=== PATIENT | female | born 1970 | race Caucasian/White ===

== ENCOUNTER 2016-10-01 20:15 | Emergency (ER) | payer MEDICARE, MEDICAID ==
[~2016-10-01] VITALS: Ht 152.4 cm; Wt 117.5 kg
[~2016-10-01 20:15] MED LIST: ASCO500T3 PO; ASPI325T4 PO; ATOR10TA PO; CHOL100016 PO; CHOL10003 PO; CLON0.5T3 PO; CLON1TAB PO; CYAN10005 PO; FERR-26 PO; FLUO20CA16 PO; FLUO60TA PO; GABA-585 PO; INSU100C4 SQ; INSU100V8 SQ; LORA-434 PO; OMEP40CA2 PO; TRAZ100T12 PO; TRAZ150T55 PO; ZOLP10TA PO; vitamin b 12
[2016-10-01] MEDS: NITROGLYCERIN SUBLINGUAL 0.4 MG BOTTLE OF 25. SL PRN ×2 (21:03→21:12)
[2016-10-01 21:12] LABS: BASO % 0 % (0-3); EOS % 2 % (0-3); HEMOGLOBIN 10.3 g/dL (12.0-15.5); LYMPH # 1.6 x10^3/uL (1.0-4.8); LYMPH % 24 % (24-48); MEAN CORPUSCULAR HEMOGLOBIN 26 pg (25-35); MEAN CORPUSCULAR HGB CONC 31 g/dL (31-37); MEAN CORPUSCULAR VOLUME 82 fL (79-100); MONO % 8 % (0-9); NEUT % 66 % (31-73); PLATELET COUNT 308 x10^3/uL (140-400); RED BLOOD COUNT 4.05 x10^6/uL (3.50-5.40); RED CELL DISTRIBUTION WIDTH 17.2 % (11.5-14.5); WHITE BLOOD COUNT 6.8 x10^3/uL (4.0-11.0)
[2016-10-01 21:18] LABS: BILIRUBIN,URINE NEGATIVE (NEG); GLUCOSE,URINE NEGATIVE (NEG); NITRITE,URINE NEGATIVE (NEG); PH,URINE 7.5; PROTEIN,URINE NEGATIVE (NEG-TRACE); UROBILINOGEN,URINE 0.2 mg/dL (0.2 mg/dL)
[2016-10-01 21:21] LABS: INR 0.9 (0.8-1.1); PROTHROMBIN TIME PATIENT 11.9 SEC (11.7-14.0)
[2016-10-01] MEDS: FENTANYL PF 100 MCG/2 ML VIAL. IV PRN ×3 (21:21→23:03)
[2016-10-01 21:25] LABS: BARBITURATES NEG (NEG); BENZODIAZEPINES NEG (NEG); CANNABINOIDS NEG (NEG); COCAINE NEG (NEG); METHADONE NEG (NEG); OPIATES NEG (NEG); PHENCYCLIDINE NEG (NEG)
[2016-10-01 21:27] LABS: ETHANOL, URINE NEG (NEG)
[2016-10-01 21:28] LABS: BACTERIA,URINE FEW /HPF (0-FEW); RBC,URINE 0 /HPF (0-2); SQUAMOUS EPITHELIAL CELL,UR MOD /LPF
[2016-10-01] MEDS ORDERED: ONDANSETRON PF 4 MG/2 ML VIAL. IV ONE (21:45)
[2016-10-01 21:47] LABS: NEG OBC SER NEG; POS OBC SER POS
[2016-10-01 22:23] LABS: CALCIUM 9.4 mg/dL (8.5-10.1); CREATININE 0.8 mg/dL (0.6-1.0); GFR 77.9; POTASSIUM 4.3 mmol/L (3.5-5.1)
[2016-10-01] MEDS ORDERED: IOHEXOL 300 MG/ML 75 ML VIAL IV ONE (23:15)
[2016-10-01] MEDS ORDERED: CONTRAST GIVEN MC PRN (23:15)
[2016-10-01 23:29] VITALS: BP 128/61
--- NOTE | 2016-10-01 23:38 | RAD ---
PQRS STATEMENT One or more of the following individualized dose reduction techniques were utilized for this study: 1.Automated exposure control 2.Adjustment of the mA and/or kV according to patient size 3.Use of iterative reconstruction technique CT angio chest. Indication: CP/SOB HX PE, ESOPHAGEAL STRICT, DVTReason: CP/SOB, hx of PE / Spl. Instructions: / History: TECHNIQUE Multiple contiguous axial images were obtained through the chest after intravenous administration of iodinated contrast. MIP reformations were created. FINDINGS There is no filling defect within the pulmonary arteries to suggest presence of a pulmonary embolism. The heart size is normal. There is no pericardial effusion. The thoracic aorta is normal in caliber with no evidence for dissection. The lungs are clear. No suspicious pulmonary nodules are identified. There is no pleural effusion or infiltrate. There is no thoracic adenopathy. Limited subdiaphragmatic evaluation is unremarkable. No destructive osseous lesions are identified. IMPRESSION Negative for pulmonary embolism. Electronically signed by: Yordan Wilde (Oct 01, 2016 23:37:25)
--- NOTE | 2016-10-02 02:46 | ED.ADGEN ---
Past Medical History Past Medical History: Anxiety, Bipolar, Diabetes-Type II, GERD, High Cholesterol, Hypertension, Other Additional Past Medical Histor: PE Past Surgical History: , Hysterectomy, Other Additional Past Surgical Histo: colonoscopy, LEFT CARPAL TUNNEL Alcohol Use: None Drug Use: None Adult General Chief Complaint Chief Complaint: CHEST PAIN HPI HPI Patient is a 46 year old woman, history of type type 2 diabetes mellitus, hypertension, obesity, hyperlipidemia, bipolar disorder, remote history of PE on anticoagulation, who presents to the emergency department with a complaint of left-sided chest pain radiating to her left back and occasionally left arm. Patient states the symptoms began at 7:30 in the evening, has been constant since that time. She was evaluated in the emergency department and admitted to the hospital for additional evaluation on 11 September for similar complaints, she states that "this feels the same". States that she does have some shortness of breath with pain in that worsens with inspiration, remote history of PE as stated, does not take any regulation, and states that "they never told me why it happened". This occurred years ago. No new injuries, patient with occasional coughing, and is nonproductive, no fevers, no chills, no GI or complaints. Has not taken any medications for this pain prior to coming to the ED. Review of Systems Review of Systems Constitutional: Denies fever or chills. [] Eyes: Denies change in visual acuity. [] HENT: Denies nasal congestion or sore throat. [] Respiratory: Denies cough or shortness of breath. [] Cardiovascular: Left anterior chest wall pain, sharp in nature, worse with deep inspiration, no edema. Pain occasionally spreads in the left shoulder down to the elbow. GI: Denies abdominal pain, nausea, vomiting, bloody stools or diarrhea. [] : Denies dysuria. [] Musculoskeletal: Denies back pain or joint pain. [] Integument: Denies rash. [] Neurologic: Denies headache, focal weakness or sensory changes. [] Endocrine: Denies polyuria or polydipsia. [] Lymphatic: Denies swollen glands. [] Psychiatric: Denies depression or anxiety. [] Current Medications Current Medications Current Medications Medications (Trade) Dose Ordered Sig/Amalia Start Time Stop Time Status Last Admin Dose Admin Fentanyl Citrate (Fentanyl 2ml Vial) 25 mcg PRN Q15MIN PRN 10/01/16 20:45 10/02/16 20:44 10/01/16 23:03 25 MCG Info (Do NOT chart on this entry -- for MONITORING) 1 each PRN DAILY PRN 10/01/16 23:15 10/03/16 23:14 Iohexol (Omnipaque 300 Mg/ml) 75 ml 1X ONCE 10/01/16 23:15 10/01/16 23:16 DC 10/01/16 23:23 75 ML Nitroglycerin (Nitrostat) 0.4 mg PRN Q5MIN PRN 10/01/16 20:45 10/02/16 20:44 10/01/16 21:12 0.4 MG Ondansetron HCl (Zofran) 4 mg 1X ONCE 10/01/16 21:45 10/01/16 21:46 DC 10/01/16 21:44 4 MG Allergies Allergies Allergies Coded Allergies Type Severity Reaction Last Updated Verified ketorolac Allergy Intermediate 09/11/16 Yes sulfamethoxazole Allergy Intermediate 04/29/16 Yes tramadol Allergy Intermediate 09/11/16 Yes trimethoprim Allergy Intermediate 04/29/16 Yes Physical Exam Physical Exam Constitutional: Well developed, well nourished, no acute distress, non-toxic appearance. [] HENT: Normocephalic, atraumatic, bilateral external ears normal, oropharynx moist, no oral exudates, nose normal. [] Eyes: PERRLA, EOMI, conjunctiva normal, no discharge. [] Neck: Normal range of motion, no tenderness, supple, no stridor. [] Cardiovascular:Heart rate regular rhythm, no murmur , S1, S2, rubs or gallops. [ ] Lungs & Thorax: Bilateral breath sounds clear to auscultation, no wheezing, rhonchi, rales. Patient with reproducible anterior left chest wall tenderness, no crepitus, consistent with patient's pain. [] Abdomen: Bowel sounds normal, soft, no tenderness, no masses, no pulsatile masses. [] Skin: Warm, dry, no erythema, no rash. [] Back: No tenderness, no CVA tenderness. [] Extremities: No tenderness, no cyanosis, no clubbing, ROM intact, no edema. Negative Homans sign. [] Neurologic: Alert and oriented X 3, normal motor function, normal sensory function, no focal deficits noted. [] Psychologic: Affect normal, judgement normal, mood normal. [] Current Patient Data Vital Signs Vital Signs Date Time Temp Pulse Resp B/P Pulse Ox O2 Delivery O2 Flow Rate FiO2 10/01/16 23:29 90 18 128/61 96 Room Air 10/01/16 20:30 98.1 98.1 Lab Values Laboratory Tests Test 10/01/16 20:36 10/01/16 20:48 10/01/16 20:58 10/01/16 21:02 QO-Okf-F-Type Natriuretic Peptide 36pg/mL (0-124) White Blood Count 6.8x10^3/uL (4.0-11.0) Red Blood Count 4.05x10^6/uL (3.50-5.40) Hemoglobin 10.3g/dL (12.0-15.5) L Hematocrit 33.0% (36.0-47.0) L Mean Corpuscular Volume 82fL (79-100) Mean Corpuscular Hemoglobin 26pg (25-35) Mean Corpuscular Hemoglobin Concent 31g/dL (31-37) Red Cell Distribution Width 17.2% (11.5-14.5) H Platelet Count 308x10^3/uL (140-400) Neutrophils (%) (Auto) 66% (31-73) Lymphocytes (%) (Auto) 24% (24-48) Monocytes (%) (Auto) 8% (0-9) Eosinophils (%) (Auto) 2% (0-3) Basophils (%) (Auto) 0% (0-3) Neutrophils # (Auto) 4.5x10^3uL (1.8-7.7) Lymphocytes # (Auto) 1.6x10^3/uL (1.0-4.8) Monocytes # (Auto) 0.6x10^3/uL (0.0-1.1) Eosinophils # (Auto) 0.1x10^3/uL (0.0-0.7) Basophils # (Auto) 0.0x10^3/uL (0.0-0.2) Prothrombin Time 11.9SEC (11.7-14.0) Prothrombin Time INR 0.9 (0.8-1.1) PTT 31SEC (24-38) Sodium Level 142mmol/L (136-145) Potassium Level 4.3mmol/L (3.5-5.1) Chloride Level 105mmol/L (98-107) Carbon Dioxide Level 29mmol/L (21-32) Anion Gap 8 (6-14) Blood Urea Nitrogen 13mg/dL (7-20) Creatinine 0.8mg/dL (0.6-1.0) Estimated GFR (Cockcroft-Gault) 77.9 Glucose Level 105mg/dL (70-99) H Calcium Level 9.4mg/dL (8.5-10.1) Troponin I Quantitative < 0.017ng/mL (0.000-0.055) Lipase 187U/L (73-393) Serum Test, Qualitative Negative (NEG) Urine Collection Type Unknown Urine Color Yellow Urine Clarity Clear Urine pH 7.5 Urine Specific [place] 1.015 Urine Protein Negativemg/dL (NEG-TRACE) Urine Glucose (UA) Negativemg/dL (NEG) Urine Ketones (Stick) Negativemg/dL (NEG) Urine Blood Negative (NEG) Urine Nitrite Negative (NEG) Urine Bilirubin Negative (NEG) Urine Urobilinogen Dipstick 0.2mg/dL (0.2 mg/dL) Urine Leukocyte Esterase Small (NEG) Urine RBC 0/HPF (0-2) Urine WBC 1-4/HPF (0-4) Urine Squamous Epithelial Cells Mod/LPF Urine Bacteria Few/HPF (0-FEW) Urine Mucus Marked/LPF Urine Opiates Screen Neg (NEG) Urine Methadone Screen Neg (NEG) Urine Barbiturates Neg (NEG) Urine Phencyclidine Screen Neg (NEG) Urine Amphetamine/Methamphetamine Neg (NEG) Urine Benzodiazepines Screen Neg (NEG) Urine Cocaine Screen Neg (NEG) Urine Cannabinoids Screen Neg (NEG) Urine Ethyl Alcohol Neg (NEG) POC Urine HCG, Qualitative hcg negative (Negative) Laboratory Tests 10/01/16 20:48 Laboratory Tests 10/01/16 20:48 EKG EKG EC: Sinus rhythm, heart rate 83 bpm, upright axis, QTC of 449, PA 158, QRS of 79, incomplete right bundle-branch block noted, abnormal ECG, does not meet STEMI criteria. As interpreted by me. [] Radiology/Procedures Radiology/Procedures Chest x-ray: Normal cardiopulmonary silhouette, no infiltrates, no effusions, no soft tissue or bony abnormalities identified. No pneumothorax. As interpreted by me. [] Impressions: [facility] [address] [place] [address] IMAGING REPORT Signed PATIENT: MARK PRIDE ACCOUNT: [id number] : 1970 LOCATION: ER AGE: 46 SEX: F EXAM STATUS: REG ER ORD. PHYSICIAN: RUBEN HUMPHREY DO REASON: CP/SOB, hx of PE PROCEDURE: CTA CHEST PQRS STATEMENT One or more of the following individualized dose reduction techniques were utilized for this study: 1.Automated exposure control 2.Adjustment of the mA and/or kV according to patient size 3.Use of iterative reconstruction technique CT angio chest. Indication: CP/SOB HX PE, ESOPHAGEAL STRICT, DVTReason: CP/SOB, hx of PE / Spl. Instructions: / History: TECHNIQUE Multiple contiguous axial images were obtained through the chest after intravenous administration of iodinated contrast. MIP reformations were created. FINDINGS There is no filling defect within the pulmonary arteries to suggest presence of a pulmonary embolism. The heart size is normal. There is no pericardial effusion. The thoracic aorta is normal in caliber with no evidence for dissection. The lungs are clear. No suspicious pulmonary nodules are identified. There is no pleural effusion or infiltrate. There is no thoracic adenopathy. Limited subdiaphragmatic evaluation is unremarkable. No destructive osseous lesions are identified. IMPRESSION Negative for pulmonary embolism. Electronically signed by: Yordan Kate (Oct 01, 2016 23:37:25) DICTATED and SIGNED BY: YORDAN KATE MD DATE: 10/01/16 0902 CC: RUBEN HUMPHREY DO; UNKNOWN PCP NAME ~ Course & Med Decision Making Course & Med Decision Making Pertinent Labs and Imaging studies reviewed. (See chart for details) Patient with history of chest pain which was recently evaluated, and return to likely be GI in nature. However, as patient does have history of remote PE, which she states was unprovoked per her recollection, and she is not on any anticoagulation, with report of respirophasic chest pain, mild shortness of breath, and mild tachycardia, CT of the chest obtained after discussion with patient bedside. She was treated with nitroglycerin, fentanyl initially in the ED for chest pain. Patient's laboratory studies at this point were unremarkable , ECG with acute concerning findings, chest x-ray unremarkable, CT was obtained , and did not reveal any evidence of acute normalities. However when I went to the room to discuss these negative findings with the patient, we found that she had pulled out her IV, and had eloped from the emergency department. Dragon Disclaimer Dragon Disclaimer This electronic medical record was generated, in whole or in part, using a voice recognition dictation system. Departure Impression: Primary Impression: Chest pain Disposition: 07 AGAINST MEDICAL ADVICE Condition: STABLE (ERASED) Problem Qualifiers Primary Impression: Chest pain Chest pain type: chest pain on breathing Qualified Code: R07.1 - Chest pain on breathing RUBEN HUMPHREY DO Oct 02, 2016 02:47
--- NOTE | 2016-10-02 06:24 | EKG ---
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
--- NOTE | 2016-10-02 07:38 | RAD ---
Portable AP upright view CXR: Clinical indications: Left-sided chest pain radiating to the left arm today.. Findings: No acute lung infiltrate or pleural effusion or pulmonary edema or lung mass or pneumothorax is seen. The heart size, pulmonary vasculature, mediastinum and both lacey are unremarkable. Scoliosis is seen. Impression: No acute radiographic abnormality is seen.
== END 2016-10-01 23:50 | disposition left against medical advice (07) ==
LOC: ER 20:15
DX: R07.1 Chest pain on breathing (principal); R06.02 Shortness of breath; R00.0 Tachycardia, unspecified; E11.9 Type 2 diabetes mellitus without complications; F31.9 Bipolar disorder, unspecified; F41.9 Anxiety disorder, unspecified; E78.00 Pure hypercholesterolemia, unspecified; I10 Essential (primary) hypertension; E66.9 Obesity, unspecified; E78.5 Hyperlipidemia, unspecified; Z68.43 Body mass index [BMI] 50.0-59.9, adult; Z88.8 Allergy status to other drugs, medicaments and biological substances; Z88.1 Allergy status to other antibiotic agents; Z88.2 Allergy status to sulfonamides; Z88.5 Allergy status to narcotic agent; Z86.711 Personal history of pulmonary embolism; Z79.01 Long term (current) use of anticoagulants
CPT/HCPCS: 36415; 71010; 71275; 80048; 81001; 81025; 83690; 83880; 84484; 84703; 85027; 85610; 85730; 87086; 93005; 96374; 96375; 96376; 99285; G0481; J2405; J3010; Q9967

== ENCOUNTER 2016-10-27 21:45 | Emergency (ER) | payer MEDICARE, MEDICAID ==
[~2016-10-27] VITALS: Ht 152.4 cm; Wt 117.9 kg
[2016-10-27 22:18] VITALS: BP 129/57
[2016-10-27] MEDS ORDERED: IV NORMAL SALINE 1000ML BAG 1,000 ML IV ONE (23:00)
[2016-10-27] MEDS ORDERED: DIPHENHYDRAMINE 50 MG/ML VIAL IVP ONE (23:00)
[2016-10-27] MEDS ORDERED: METOCLOPRAMIDE HCL 10 MG/2 ML VIAL. IV ONE (23:00)
--- NOTE | 2016-10-27 23:40 | PHYS DOC ---
Past Medical History Past Medical History: Anxiety, Bipolar, Diabetes-Type II, GERD, High Cholesterol, Hypertension, Migraines, Other Additional Past Medical Histor: PE Past Surgical History: , Hysterectomy, Tubal ligation, Other Additional Past Surgical Histo: colonoscopy, LEFT CARPAL TUNNEL Alcohol Use: None Drug Use: None Adult General Chief Complaint Chief Complaint: HEADACHE HPI HPI 46-year-old female with a history of migraines presents to the emergency department today with a headache consistent with her previous migraines. She reports her headache is similar to previous migraines. Her headache is sharp radiating to the back starting in the frontal region. She denies numbness weakness or tingling. She has had nausea with vomiting. She describes the pain is sharp moderate and without alleviating factors. Review of systems is negative for chest pain shortness of breath abdominal pain. Positive for nausea vomiting. All other review of systems is negative unless otherwise noted in history of present illness. Review of Systems Review of Systems SEE ABOVE. Current Medications Current Medications Current Medications Medications (Trade) Dose Ordered Sig/Amalia Start Time Stop Time Status Last Admin Dose Admin Diphenhydramine HCl 50 mg 50 mg 1X ONCE 10/27/16 23:00 10/27/16 23:01 DC 10/27/16 22:55 50 MG Metoclopramide HCl (Reglan) 20 mg 1X ONCE 10/27/16 23:00 10/27/16 23:01 DC 10/27/16 22:55 20 MG Sodium Chloride (Iv Sodium Chloride 0.9% 1000ml Bag) 1,000 ml @ 1,000 mls/hr 1X ONCE 10/27/16 23:00 10/27/16 23:59 10/27/16 22:51 1,000 MLS/HR Allergies Allergies Allergies Coded Allergies Type Severity Reaction Last Updated Verified ketorolac Allergy Intermediate 09/11/16 Yes sulfamethoxazole Allergy Intermediate 04/29/16 Yes tramadol Allergy Intermediate 09/11/16 Yes trimethoprim Allergy Intermediate 04/29/16 Yes Physical Exam Physical Exam Constitutional: Well developed, well nourished, no acute distress, non-toxic appearance. HENT: Normocephalic, atraumatic, bilateral external ears normal, oropharynx moist, no oral exudates, nose normal. [] Eyes: PERRLA, EOMI, conjunctiva normal, no discharge. [] Neck: Normal range of motion, no tenderness, supple, no stridor. Cardiovascular:Heart rate regular rhythm, no murmur [] Lungs & Thorax: Bilateral breath sounds clear to auscultation Abdomen: Bowel sounds normal, soft, no tenderness, no masses, no pulsatile masses. [] Skin: Warm, dry, no erythema, no rash. Back: No tenderness, no CVA tenderness. [] Extremities: No tenderness, no cyanosis, no clubbing, ROM intact, no edema. [] Neurologic: Mental status: Awake oriented and alert x3 Cranial nerves: Extraocular movements intact, eyebrows abhay bilaterally smile symmetric, uvula elevation, shoulder shrug intact, tongue protrusion normal Sensation: equal and normal in all extremities Strength: 5/5 in upper and lower extremities bilaterally Psychologic: Affect normal, judgement normal, mood normal. [] Current Patient Data Vital Signs Vital Signs Date Time Temp Pulse Resp B/P Pulse Ox O2 Delivery O2 Flow Rate FiO2 10/27/16 22:18 98.2 77 18 129/57 96 Room Air 98.2 EKG EKG [] Radiology/Procedures Radiology/Procedures [] Course & Med Decision Making Course & Med Decision Making Pertinent Labs and Imaging studies reviewed. (See chart for details) [] 46-year-old female presenting to the emergency department today with a headache consistent with previous migraines. Vital signs afebrile. Otherwise unremarkable. Neuro exam unremarkable. IV fluids, Reglan and Benadryl given. On reevaluation the patient's symptoms considerably improved. She was subsequently discharged home to follow up with her primary care physician over the next 2-3 days for chronic management of her migraines. Dragon Disclaimer Dragon Disclaimer This electronic medical record was generated, in whole or in part, using a voice recognition dictation system. Departure Departure Impression: Primary Impression: Migraine Disposition: 01 HOME, SELF-CARE Condition: STABLE Referrals: UNKNOWN PCP NAME (PCP) SWATI LUCIANO MD Patient Instructions: Migraine Headache Additional Instructions: Thank you for allowing us to participate in your care today. Followup with your primary care physician in 3 days if your symptoms do not improve. If you do not have a primary care provider you can ask for a list of our primary care providers. Return to the emergency department you have any new or concerning findings. This should be evaluated by the primary care physician and any necessary consulting services for continued management within a few days after discharge. Return to emergency room if you have any new or concerning symptoms including but not limited to fever, chills, nausea, vomiting, intractable pain, any new rashes, chest pain, shortness of air, uncontrolled bleeding, difficulty breathing, and/or vision loss. SYBIL SHIPMAN MD Oct 27, 2016 23:40
== END 2016-10-27 23:54 | disposition home or self-care (01) ==
LOC: ER 21:45
DX: G43.909 Migraine, unspecified, not intractable, without status migrainosus (principal); F41.9 Anxiety disorder, unspecified; F31.9 Bipolar disorder, unspecified; E11.9 Type 2 diabetes mellitus without complications; K21.9 Gastro-esophageal reflux disease without esophagitis; E78.00 Pure hypercholesterolemia, unspecified; I10 Essential (primary) hypertension; Z86.711 Personal history of pulmonary embolism; Z88.8 Allergy status to other drugs, medicaments and biological substances; Z88.2 Allergy status to sulfonamides; Z88.5 Allergy status to narcotic agent; Z88.1 Allergy status to other antibiotic agents
CPT/HCPCS: 96361; 96374; 96375; 99284; J1200; J2765; J7030

== ENCOUNTER 2016-12-13 22:41 | Emergency (ER) | payer MEDICARE, MEDICAID ==
[~2016-12-13] VITALS: Ht 152.4 cm; Wt 117.9 kg
[2016-12-13 23:00] VITALS: BP 135/75
[2016-12-13] MEDS ORDERED: LIDO:MAALOX:DONNATAL 1:1:1 15 ML SINGLE DOSE SWSW ONE (23:30)
[2016-12-13] MEDS ORDERED: ONDANSETRON PF 4 MG/2 ML VIAL. IV ONE (23:30)
[2016-12-13] MEDS ORDERED: FAMOTIDINE 20 MG/2 ML VIAL IVP ONE (23:30)
--- NOTE | 2016-12-13 23:34 | PHYS DOC ---
Past Medical History Past Medical History: Anxiety, Bipolar, Depression, Diabetes-Type II, GERD, High Cholesterol, Hypertension, Migraines, Other Additional Past Medical Histor: PE Past Surgical History: , Hysterectomy, Tubal ligation, Other Additional Past Surgical Histo: colonoscopy, LEFT CARPAL TUNNEL Alcohol Use: None Drug Use: None Adult General Chief Complaint Chief Complaint: CHEST PAIN HPI HPI Patient is a 46 year old female who presents with left lower chest pain radiating to left shoulder associated with nausea and vomiting over the past 2 weeks, intermittent, constant all day today. Symptoms have been gradually worsening throughout today. Symptoms much worse after laying down for bed. She has nonbloody nonbilious emesis intermittently. She denies bloody or dark stools , diarrhea, fever or chills, dysuria, back pain, dyspnea, palpitations, diaphoresis. States symptoms are similar to prior evaluations. States she is follows with her primary care doctor currently and plans to see a golf ball cover treater. Review of Systems Review of Systems Constitutional: Denies fever or chills [] Eyes: Denies change in visual acuity, redness, or eye pain [] HENT: Denies nasal congestion or sore throat [] Respiratory: Denies cough or shortness of breath [] Cardiovascular: No additional information not addressed in HPI [] GI: Denies abdominal pain, bloody stools or diarrhea [] : Denies dysuria or hematuria [] Musculoskeletal: Denies back pain or joint pain [] Integument: Denies rash or skin lesions [] Neurologic: Denies headache, focal weakness or sensory changes [] Endocrine: Denies polyuria or polydipsia [] Current Medications Current Medications Current Medications Medications (Trade) Dose Ordered Sig/Amalia Start Time Stop Time Status Last Admin Dose Admin Famotidine (Pepcid) 20 mg 1X ONCE 12/13/16 23:30 12/13/16 23:31 DC 12/13/16 23:30 20 MG Fentanyl Citrate (Fentanyl 2ml Vial) 100 mcg STK-MED ONCE 12/14/16 00:26 12/14/16 00:27 DC Ketorolac Tromethamine (Toradol) 15 mg STK-MED ONCE 12/14/16 00:17 12/14/16 00:25 DC Multi-Ingredient Mouthwash/Gargle (Gi Cocktail Single Dose) 15 ml 1X ONCE 12/13/16 23:30 12/13/16 23:31 DC 12/13/16 23:30 15 ML Ondansetron HCl (Zofran) 4 mg 1X ONCE 12/13/16 23:30 12/13/16 23:31 DC 12/13/16 23:30 4 MG Allergies Allergies Allergies Coded Allergies Type Severity Reaction Last Updated Verified ketorolac Allergy Intermediate 09/11/16 Yes sulfamethoxazole Allergy Intermediate 04/29/16 Yes tramadol Allergy Intermediate 09/11/16 Yes trimethoprim Allergy Intermediate 04/29/16 Yes Physical Exam Physical Exam Constitutional: Well developed, well nourished, no acute distress, non-toxic appearance. [] HENT: Normocephalic, atraumatic, bilateral external ears normal, oropharynx moist, nose normal. [] Eyes: PERRLA, EOMI. [] Neck: Normal range of motion, supple. [] Cardiovascular:Heart rate regular rhythm [] Lungs & Thorax: Bilateral breath sounds clear to auscultation [] Abdomen: Bowel sounds normal, soft, no tenderness. [] Skin: Warm, dry, no erythema, no rash. [] Back: Normal range of motion. [] Extremities: No tenderness, ROM intact. [] Neurologic: Alert and oriented X 3, normal motor function, normal sensory function, no focal deficits noted. [] Psychologic: Affect normal, judgement normal, mood normal. [] Current Patient Data Vital Signs Vital Signs Date Time Temp Pulse Resp B/P Pulse Ox O2 Delivery O2 Flow Rate FiO2 12/14/16 00:30 20 12/13/16 23:00 98.4 85 135/75 95 Room Air 98.4 Lab Values Laboratory Tests Test 12/13/16 23:12 Sodium Level 140mmol/L (136-145) Potassium Level 3.7mmol/L (3.5-5.1) Chloride Level 102mmol/L (98-107) Carbon Dioxide Level 31mmol/L (21-32) Anion Gap 7 (6-14) Blood Urea Nitrogen 15mg/dL (7-20) Creatinine 0.9mg/dL (0.6-1.0) Estimated GFR (Cockcroft-Gault) 68.0 Glucose Level 130mg/dL (70-99) H Calcium Level 9.0mg/dL (8.5-10.1) Troponin I Quantitative < 0.017ng/mL (0.000-0.055) Laboratory Tests 12/13/16 23:12 EKG EKG EKG as interpreted by me as normal sinus rhythm, rate 77, no ST-T changes, normal intervals, no ectopy Course & Med Decision Making Course & Med Decision Making Pertinent Labs and Imaging studies reviewed. (See chart for details) Workup is unremarkable. She is feeling better after medications. Encouraged follow-up with her primary care doctor and gastroenterology clinic. Return precautions given. She understands and agrees with plan. Dragon Disclaimer Dragon Disclaimer This electronic medical record was generated, in whole or in part, using a voice recognition dictation system. Departure Departure Impression: Primary Impression: Atypical chest pain Disposition: HOME, SELF-CARE Condition: STABLE Referrals: UNKNOWN PCP NAME (PCP) Patient Instructions: Gastritis, Adult, [id number] Additional Instructions: Take famotidine for likely gastritis. Take Zofran as needed for nausea. Follow- up with your primary care doctor and GI clinic. Return for any concerns. Scripts Ondansetron (Zofran Odt)4 Mg Tab.rapdis1 Tab SL Q8HRS #10 TAB Prov:Kelsea ROWELL MD 12/14/16 Famotidine 20 Mg [id number] Mg PO BID #30 TAB Prov:Kelsea ROWELL MD 12/14/16 Kelsea ROWELL MD Dec 13, 2016 23:34
[2016-12-13 23:44] LABS: CREATININE 0.9 mg/dL (0.6-1.0); POTASSIUM 3.7 mmol/L (3.5-5.1)
[2016-12-14] MEDS ORDERED: ONDA4TAB10 SL (00:06)
[2016-12-14] MEDS ORDERED: FAMO20TA5 PO (00:06)
[2016-12-14] MEDS ORDERED: KETOROLAC TROMETHAMINE 30 MG/ML INJ. IV ONE (00:15)
[2016-12-14] MEDS ORDERED: KETOROLAC 15 MG/ML VIAL. ONE (00:17)
--- NOTE | 2016-12-14 00:25 | EKG ---
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
[2016-12-14] MEDS ORDERED: FENTANYL PF 100 MCG/2 ML VIAL. ONE (00:26)
[2016-12-14] MEDS ORDERED: FENTANYL PF 100 MCG/2 ML VIAL. IV ONE (00:30)
== END 2016-12-14 00:33 | disposition home or self-care (01) ==
LOC: ER 22:41
DX: R07.89 Other chest pain (principal); R11.2 Nausea with vomiting, unspecified; F41.9 Anxiety disorder, unspecified; F31.9 Bipolar disorder, unspecified; E11.9 Type 2 diabetes mellitus without complications; K21.9 Gastro-esophageal reflux disease without esophagitis; E78.00 Pure hypercholesterolemia, unspecified; I10 Essential (primary) hypertension; G43.909 Migraine, unspecified, not intractable, without status migrainosus; Z86.711 Personal history of pulmonary embolism; Z88.6 Allergy status to analgesic agent; Z88.1 Allergy status to other antibiotic agents; Z88.5 Allergy status to narcotic agent; Z88.2 Allergy status to sulfonamides
CPT/HCPCS: 36415; 80048; 84484; 93005; 96374; 96375; 99285; J2405; J3010; S0028

== ENCOUNTER 2017-03-16 18:34 | Emergency (ER) | payer MEDICARE, MEDICAID ==
[~2017-03-16 18:34] MED LIST changes: -ASPI325T4 PO; +ASPI325T8 PO; +FAMO20TA5 PO; +ONDA4TAB10 SL; +TRAZ150T49 PO; -TRAZ150T55 PO
[2017-03-16 18:46] VITALS: BP 119/57
[2017-03-16 19:15] LABS: BASO % 1 % (0-3); EOS % 2 % (0-3); HEMATOCRIT 28.6 % (36.0-47.0); HEMOGLOBIN 9.2 g/dL (12.0-15.5); LYMPH # 2.3 x10^3/uL (1.0-4.8); LYMPH % 32 % (24-48); MEAN CORPUSCULAR HEMOGLOBIN 26 pg (25-35); MEAN CORPUSCULAR HGB CONC 32 g/dL (31-37); MEAN CORPUSCULAR VOLUME 81 fL (79-100); MONO % 10 % (0-9); NEUT % 56 % (31-73); PLATELET COUNT 240 x10^3/uL (140-400); RED BLOOD COUNT 3.53 x10^6/uL (3.50-5.40); RED CELL DISTRIBUTION WIDTH 15.2 % (11.5-14.5); WHITE BLOOD COUNT 7.3 x10^3/uL (4.0-11.0)
[2017-03-16 19:30] LABS: CALCIUM 8.8 mg/dL (8.5-10.1); CREATININE 0.7 mg/dL (0.6-1.0); GFR 90.5; POTASSIUM 4.2 mmol/L (3.5-5.1)
[2017-03-16] MEDS ORDERED: ACETAMINOPHEN 325 MG TABLET. PO ONE (20:00)
[2017-03-16] MEDS ORDERED: ONDANSETRON PF 4 MG/2 ML VIAL. IV ONE (20:00)
--- NOTE | 2017-03-16 20:08 | PHYS DOC ---
Past Medical History Past Medical History: Anxiety, Bipolar, Depression, Diabetes-Type II, GERD, High Cholesterol, Hypertension, Migraines, Other Additional Past Medical Histor: PE Past Surgical History: , Hysterectomy, Tubal ligation, Other Additional Past Surgical Histo: colonoscopy, LEFT CARPAL TUNNEL Alcohol Use: None Drug Use: None Adult General Chief Complaint Chief Complaint: CHEST PAIN [facility] HPI Patient is a 47 year old female who presents with complaints of left-sided chest pain that radiates to her left arm. Patient has had similar pains in the past, the pain is reproducible by movement and palpation. No nausea vomiting. Patient has had workups for this in the past that have been negative. Patient denies any trauma or recent illnesses. The pain is not worse with inspiration. No associated neck pain, neck pain, abdominal pain, leg pain. Review of Systems Review of Systems Constitutional: Denies fever or chills [] Respiratory: Denies cough or shortness of breath [] Cardiovascular: No additional information not addressed in HPI [] GI: Denies abdominal pain, nausea, vomiting, : Denies dysuria or hematuria [] Musculoskeletal: yes to shoulder and upper L arm pain Integument: Denies rash or skin lesions [] Neurologic: Denies headache, focal weakness or sensory changes [] Current Medications Current Medications Current Medications Medications (Trade) Dose Ordered Sig/Amalia Start Time Stop Time Status Last Admin Dose Admin Acetaminophen (Tylenol) 650 mg 1X ONCE 03/16/17 20:00 03/16/17 20:01 DC Ondansetron HCl (Zofran Odt) 4 mg STK-MED ONCE 03/16/17 20:14 03/16/17 20:15 DC Ondansetron HCl (Zofran) 4 mg 1X ONCE 03/16/17 20:00 03/16/17 20:01 DC 03/16/17 20:10 4 MG Allergies Allergies Allergies Coded Allergies Type Severity Reaction Last Updated Verified ketorolac Allergy Intermediate 09/11/16 Yes sulfamethoxazole Allergy Intermediate 04/29/16 Yes tramadol Allergy Intermediate 09/11/16 Yes trimethoprim Allergy Intermediate 04/29/16 Yes Physical Exam Physical Exam Constitutional: Well developed, well nourished, no acute distress, non-toxic appearance. [] HENT: Normocephalic, atraumati Eyes: EOMI, conjunctiva normal, no discharge. [] Neck: Normal range of motion, no tenderness, supple, no stridor, trachea midline Cardiovascular:Heart rate regular rhythm, no murmur. Palpation of left upper chest and left shoulder reproduces symptoms Lungs & Thorax: Bilateral breath sounds clear to auscultation, no tachypnea Abdomen: Bowel sounds normal, soft, no tenderness, no masses, no pulsatile masses. [] Skin: Warm, dry, no erythema, no rash. [] Back: No tenderness, Extremities: No tenderness, no cyanosis, no clubbing, ROM intact, no edema. No swelling, no signs of DVT Neurologic: Alert and oriented X 3, normal motor function, normal sensory function, no focal deficits noted. [] Psychologic: Affect normal, judgement normal, mood normal. [] Current Patient Data Vital Signs Vital Signs Date Time Temp Pulse Resp B/P (MAP) Pulse Ox O2 Delivery O2 Flow Rate FiO2 03/16/17 18:46 99.0 88 22 119/57 (77) 97 Room Air 99.0 Lab Values Laboratory Tests Test 03/16/17 18:50 White Blood Count 7.3 x10^3/uL (4.0-11.0) Red Blood Count 3.53 x10^6/uL (3.50-5.40) Hemoglobin 9.2 g/dL (12.0-15.5) L Hematocrit 28.6 % (36.0-47.0) L Mean Corpuscular Volume 81 fL (79-100) Mean Corpuscular Hemoglobin 26 pg (25-35) Mean Corpuscular Hemoglobin Concent 32 g/dL (31-37) Red Cell Distribution Width 15.2 % (11.5-14.5) H Platelet Count 240 x10^3/uL (140-400) Neutrophils (%) (Auto) 56 % (31-73) Lymphocytes (%) (Auto) 32 % (24-48) Monocytes (%) (Auto) 10 % (0-9) H Eosinophils (%) (Auto) 2 % (0-3) Basophils (%) (Auto) 1 % (0-3) Neutrophils # (Auto) 4.1 x10^3uL (1.8-7.7) Lymphocytes # (Auto) 2.3 x10^3/uL (1.0-4.8) Monocytes # (Auto) 0.7 x10^3/uL (0.0-1.1) Eosinophils # (Auto) 0.1 x10^3/uL (0.0-0.7) Basophils # (Auto) 0.0 x10^3/uL (0.0-0.2) Sodium Level 139 mmol/L (136-145) Potassium Level 4.2 mmol/L (3.5-5.1) Chloride Level 101 mmol/L (98-107) Carbon Dioxide Level 32 mmol/L (21-32) Anion Gap 6 (6-14) Blood Urea Nitrogen 11 mg/dL (7-20) Creatinine 0.7 mg/dL (0.6-1.0) Estimated GFR (Cockcroft-Gault) 90.5 Glucose Level 119 mg/dL (70-99) H Calcium Level 8.8 mg/dL (8.5-10.1) Troponin I Quantitative < 0.017 ng/mL (0.000-0.055) Laboratory Tests 03/16/17 18:50 Laboratory Tests 03/16/17 18:50 EKG EKG SR 82, no STEMI,EP Interpretation at 1843 [] Radiology/Procedures Radiology/Procedures [] Course & Med Decision Making Course & Med Decision Making Pertinent Labs and Imaging studies reviewed. (See chart for details) Pt decided to leave AMA without discussing her decision with the MD prior to leaving. Pt was aware of need for further studies prior to discharge. Dragon Disclaimer Dragon Disclaimer This electronic medical record was generated, in whole or in part, using a voice recognition dictation system. Departure Departure Impression: Primary Impression: Nonspecific chest pain Additional Impressions: Musculoskeletal arm pain Left against medical advice Disposition: 07 AGAINST MEDICAL ADVICE Condition: STABLE Referrals: UNKNOWN PCP NAME (PCP) Problem Qualifiers Kofi RICK MD Mar 16, 2017 20:08
[2017-03-16] MEDS ORDERED: ONDANSETRON ODT 4 MG TAB.RAPDIS. ONE (20:14)
[2017-03-16] MEDS ORDERED: ONDANSETRON ODT 4 MG TAB.RAPDIS. PO ONE (20:30)
--- NOTE | 2017-03-17 06:38 | EKG ---
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
== END 2017-03-16 20:24 | disposition left against medical advice (07) ==
LOC: ER 18:34
DX: R07.89 Other chest pain (principal); M79.602 Pain in left arm; E11.9 Type 2 diabetes mellitus without complications; E78.00 Pure hypercholesterolemia, unspecified; F41.9 Anxiety disorder, unspecified; I10 Essential (primary) hypertension; K21.9 Gastro-esophageal reflux disease without esophagitis; G43.909 Migraine, unspecified, not intractable, without status migrainosus; F31.9 Bipolar disorder, unspecified; Z86.711 Personal history of pulmonary embolism; Z88.1 Allergy status to other antibiotic agents; Z88.4 Allergy status to anesthetic agent; Z88.6 Allergy status to analgesic agent
CPT/HCPCS: 36415; 80048; 84484; 85027; 93005; 96374; 99285; J2405

== ENCOUNTER 2017-04-14 23:32 | Emergency (ER) | payer MEDICARE, MEDICAID ==
[~2017-04-14] VITALS: Ht 152.4 cm; Wt 108.9 kg
[2017-04-14 23:37] VITALS: BP 136/82
[2017-04-14] MEDS ORDERED: NAPR500T8 PO (23:54)
--- NOTE | 2017-04-14 23:54 | PHYS DOC ---
Past Medical History Past Medical History: Anxiety, Bipolar, Depression, Diabetes-Type II, GERD, High Cholesterol, Hypertension, Migraines, Other Additional Past Medical Histor: PE Past Surgical History: , Hysterectomy, Tubal ligation, Other Additional Past Surgical Histo: colonoscopy, LEFT CARPAL TUNNEL Alcohol Use: None Drug Use: None Adult General Chief Complaint Chief Complaint: BACK PAIN - NO INJURY HPI HPI Patient is a 47 year old female with history of anxiety, diabetes type 2, bipolar, hypertension, high cholesterol, chronic back pain with sciatica who presents complaining of low back pain radiating to bilateral lower extremities that began this evening. Patient denies any trauma. Patient denies any numbness or tingling to bilateral lower extremities. Denies any loss of bowel bladder function. Initially she stated she has no history of previous back pain. I inquired about this several times then she changed the story and stated she has history of back pain and she used to follow-up with the pain clinic in [facility] as well as her PCP. She states took muscle relaxers and naproxen with no relief. She told the nurse she took hydrocodones which did not help with her pain. Review of Systems Review of Systems Constitutional: Denies fever or chills [] GI: Denies abdominal pain, nausea, vomiting, bloody stools or diarrhea [] : Denies dysuria or hematuria [] Musculoskeletal: back pain Integument: Denies rash or skin lesions [] Neurologic: Denies headache, focal weakness or sensory changes [] Current Medications Current Medications Current Medications Medications (Trade) Dose Ordered Sig/Amalia Start Time Stop Time Status Last Admin Dose Admin Dexamethasone Sodium Phosphate (Decadron) 10 mg 1X ONCE 04/15/17 00:00 04/15/17 00:01 Allergies Allergies Allergies Coded Allergies Type Severity Reaction Last Updated Verified ketorolac Allergy Intermediate 09/11/16 Yes sulfamethoxazole Allergy Intermediate 04/29/16 Yes tramadol Allergy Intermediate 09/11/16 Yes trimethoprim Allergy Intermediate 04/29/16 Yes Physical Exam Physical Exam Constitutional: Well developed, well nourished, no acute distress, non-toxic appearance. [] Skin: Warm, dry, no erythema, no rash. [] Back: No tenderness, no CVA tenderness. [] Extremities: No tenderness, no cyanosis, no clubbing, ROM intact, no edema. [] Neurologic: Alert and oriented X 3, normal motor function, normal sensory function, no focal deficits noted. [] Psychologic: Affect normal, judgement normal, mood normal. [] Current Patient Data Vital Signs Vital Signs Date Time Temp Pulse Resp B/P (MAP) Pulse Ox O2 Delivery O2 Flow Rate FiO2 04/14/17 23:37 98.1 92 20 97 Room Air 98.1 EKG EKG [] Radiology/Procedures Radiology/Procedures [] Course & Med Decision Making Course & Med Decision Making Pertinent Labs and Imaging studies reviewed. (See chart for details) This is a 47-year-old female patient presented to the ED with exacerbation of chronic back pain. Please see history of present illness for further information. From what I collected from patient used to follow-up with the pain clinic at [facility] as well as her PCP. She was given Decadron in the ED and discharged with Naproxen. She was instructed to continue following up with her pain clinic doctor, her own PCP or the pain clinic doctor provided. Dragon Disclaimer Dragon Disclaimer This electronic medical record was generated, in whole or in part, using a voice recognition dictation system. Departure Departure Impression: Primary Impression: Back pain Disposition: HOME, SELF-CARE Condition: STABLE Referrals: UNKNOWN PCP NAME (PCP) CLAUDIA PEDRO MD Follow up with your pain clinic doctor or the provided pain clinic doctor or your own primary care doctor as soon as you can Patient Instructions: Back Pain, Adult Additional Instructions: You were seen for exacerbation of chronic back pain with sciatica. Follow-up with the primary care doctor and your pain clinic doctor or the provided pain clinic doctor as soon as you can. Scripts Naproxen (NAPROXEN) 500 Mg Tablet.dr 1 TAB PO BID, #60 TAB 2 Refills Prov: KAYLA KHALIL APRN 04/14/17 Problem Qualifiers Primary Impression: Back pain Back pain location: low back pain Chronicity: chronic Back pain laterality : bilateral Sciatica presence: with sciatica Sciatica laterality: bilateral sciatica Qualified Codes: M54.42 - Lumbago with sciatica, left side ; M54.41 - Lumbago with sciatica, right side; G89.29 - Other chronic pain LANDONDEANAKAYLA Mcknight APRN Apr 14, 2017 23:54
[2017-04-15] MEDS ORDERED: DEXAMETHASONE SOD PHOS 20 MG/5 ML VIAL. IM ONE
== END 2017-04-15 00:10 | disposition home or self-care (01) ==
LOC: ER 23:32
DX: M54.41 Lumbago with sciatica, right side (principal); M54.42 Lumbago with sciatica, left side; G89.29 Other chronic pain; F41.9 Anxiety disorder, unspecified; F31.9 Bipolar disorder, unspecified; E11.9 Type 2 diabetes mellitus without complications; K21.9 Gastro-esophageal reflux disease without esophagitis; I10 Essential (primary) hypertension; E78.00 Pure hypercholesterolemia, unspecified; G43.909 Migraine, unspecified, not intractable, without status migrainosus; Z90.710 Acquired absence of both cervix and uterus; Z88.5 Allergy status to narcotic agent; Z88.2 Allergy status to sulfonamides; Z88.1 Allergy status to other antibiotic agents; Z88.8 Allergy status to other drugs, medicaments and biological substances
CPT/HCPCS: 96372; 99283; J1100